=== PATIENT | female | born 1995 | race Asian ===

== ENCOUNTER 2022-09-08 11:41 | Emergency (ER) | payer OTHER ==
[~2022-09-08] VITALS: Ht 160 cm; Wt 59.1 kg
[2022-09-08 11:46] VITALS: BP 102/57; PULSE 74; RESP 16; TEMP 98.3
[2022-09-08] MEDS ORDERED: QUEtiapine FUMARATE 100 MG TABLET PO PRN (13:45)
[2022-09-08] MEDS ORDERED: LORazepam 1 MG TABLET PO PRN (13:45)
[2022-09-08] MEDS ORDERED: ZOLPIDEM TARTRATE 10 MG TABLET PO PRN (13:45)
== END 2022-09-08 15:45 | disposition left against medical advice (07) ==
LOC: EMS 11:41
DX: R45.851 Suicidal ideations (principal)
CPT/HCPCS: 99284; Z7502

== ENCOUNTER 2023-06-06 15:36 | Emergency (ER) | payer OTHER ==
[~2023-06-06] VITALS: Ht 157.5 cm; Wt 54.5 kg
[2023-06-06 15:39] VITALS: BP 100/68; PULSE 75; RESP 18; TEMP 98.5
[2023-06-06] MEDS: ACETAMINOPHEN 500 MG TABLET PO ONE (18:02)
[2023-06-06] MEDS ORDERED: IBUP-1554 PO (18:02)
[2023-06-06] MEDS ORDERED: ACET-66 PO (18:02)
[2023-06-06] MEDS: IBUPROFEN 600 MG TABLET PO ONE (18:03)
== END 2023-06-06 18:16 | disposition home or self-care (01) ==
LOC: EMS 15:36
DX: M25.562 Pain in left knee (principal); M25.561 Pain in right knee
CPT/HCPCS: 99283

== ENCOUNTER 2023-07-19 20:46 | Emergency (ER) | payer OTHER ==
[~2023-07-19] VITALS: Ht 157.5 cm; Wt 59.1 kg
[~2023-07-19 20:46] MED LIST: ACET-66 PO; IBUP-1554 PO
[2023-07-19 22:31] VITALS: BP 118/68; PULSE 71; RESP 18; TEMP 97.8
[2023-07-19] MEDS ORDERED: IBUP-1554 PO (22:41)
[2023-07-19] MEDS: DEXAMETHASONE 4 MG TABLET PO ONE (23:23)
== END 2023-07-19 23:30 | disposition home or self-care (01) ==
LOC: EMS 20:49
DX: M54.12 Radiculopathy, cervical region (principal)
CPT/HCPCS: 99283; J8540

== ENCOUNTER 2024-09-13 18:45 | Emergency (ER) | payer OTHER ==
[~2024-09-13] VITALS: Ht 157.5 cm; Wt 72.0 kg
[2024-09-13 19:08] VITALS: TEMP 97.5
[2024-09-13 20:31] VITALS: BP 115/72; PULSE 80; RESP 17; O2SAT 98
[2024-09-13] MEDS: IBUPROFEN 600 MG TABLET PO ONE (20:52)
[2024-09-13] MEDS ORDERED: IBUP-1492 PO (21:25)
== END 2024-09-13 21:29 | disposition home or self-care (01) ==
LOC: EMS 18:49
DX: S93.402A Sprain of unspecified ligament of left ankle, initial encounter (principal); Z79.899 Other long term (current) drug therapy; W01.0XXA Fall on same level from slipping, tripping and stumbling without subsequent striking against object, initial encounter; Y93.01 Activity, walking, marching and hiking; Y92.89 Other specified places as the place of occurrence of the external cause; Y99.8 Other external cause status
CPT/HCPCS: 29515; 99284; 73590-TC; 73610-TC; Z7502; Z7610

== ENCOUNTER 2024-09-24 22:57 | Emergency (ER) | payer OTHER ==
[~2024-09-24] VITALS: Ht 157.5 cm; Wt 72.7 kg
[~2024-09-24 22:57] MED LIST changes: +IBUP-1492 PO
[2024-09-24 23:01] VITALS: BP 104/69; PULSE 78; RESP 14; TEMP 97.3; O2SAT 100
[2024-09-25] MEDS: ACETAMINOPHEN 500 MG TABLET PO ONE (02:12)
[2024-09-25] MEDS: KETOROLAC TROMETHAMINE 30 MG/ML VIAL IM ONE (02:13)
== END 2024-09-25 03:29 | disposition home or self-care (01) ==
LOC: EMS 22:57
DX: S93.402A Sprain of unspecified ligament of left ankle, initial encounter (principal); Z79.899 Other long term (current) drug therapy; X58.XXXA Exposure to other specified factors, initial encounter; Y93.89 Activity, other specified; Y92.89 Other specified places as the place of occurrence of the external cause; Y99.8 Other external cause status
CPT/HCPCS: 99283; 96372; J1885

== ENCOUNTER 2024-11-04 03:49 | Emergency (ER) | payer OTHER ==
[~2024-11-04] VITALS: Ht 157.5 cm; Wt 59.1 kg
[2024-11-04 03:53] VITALS: TEMP 98.1
[2024-11-04 04:42] LABS: COVID AG,FIA SOURCE NASAL SWAB
[2024-11-04 04:54] LABS: INFLUENZA TYPE A NEGATIVE FOR TYPE A (NEGATIVE); INFLUENZA TYPE B NEGATIVE FOR TYPE B (NEGATIVE); SARS-COV2 (COVID) ANTIGEN,FIA Negative (Negative)
[2024-11-04 05:22] VITALS: BP 116/68; PULSE 72; RESP 17; O2SAT 99
[2024-11-04] MEDS ORDERED: IBUP-1554 PO (06:12)
[2024-11-04] MEDS ORDERED: ACET-2080 PO (06:12)
[2024-11-04] MEDS ORDERED: GUAIFDM PO (06:12)
[2024-11-04] MEDS ORDERED: BENZ-227 PO (06:12)
[2024-11-04] MEDS: GuaiFENesin/D-METHORPHAN [SUGAR-FREE] 200-20MG/10 ML SYRUP UDCUP PO ONE (06:16)
[2024-11-04] MEDS: ACETAMINOPHEN 500 MG TABLET PO ONE (06:16)
== END 2024-11-04 07:17 | disposition home or self-care (01) ==
LOC: EMS 03:49
DX: J40 Bronchitis, not specified as acute or chronic (principal); J06.9 Acute upper respiratory infection, unspecified; Z20.822 Contact with and (suspected) exposure to COVID-19; Z79.899 Other long term (current) drug therapy
CPT/HCPCS: 71045; 87430; 87804; 99284

== ENCOUNTER 2024-12-14 20:16 | Emergency (ER) | payer OTHER ==
[~2024-12-14] VITALS: Ht 157.5 cm; Wt 65.9 kg
[~2024-12-14 20:16] MED LIST changes: +ACET-2080 PO; +BENZ-227 PO; +GUAIFDM PO
[2024-12-14 21:23] VITALS: TEMP 97.9
[2024-12-14 22:48] VITALS: BP 115/73; PULSE 77; RESP 16; O2SAT 98
[2024-12-14] MEDS: LIDOCAINE 5% TRANSDERMAL PATCH TD ONE (22:49)
[2024-12-14] MEDS: KETOROLAC TROMETHAMINE 30 MG/ML VIAL IM ONE (23:45)
[2024-12-15] MEDS ORDERED: CYCL-448 PO (01:45)
[2024-12-15] MEDS ORDERED: LIDO-57 TP (01:45)
== END 2024-12-15 02:02 | disposition home or self-care (01) ==
LOC: EMS 20:17
DX: M54.50 Low back pain, unspecified (principal); Z79.899 Other long term (current) drug therapy
CPT/HCPCS: 99284; 84703; 36415; 72070; 96372; J1885